=== PATIENT | male | born 2000 | race Caucasian/White ===

== ENCOUNTER 2023-05-21 13:55 | Outpatient (CLI) | payer OTHER, SELFPAY | END 2023-05-21 13:56 | disposition home or self-care (01) | LOC: NFLDREF 05-24 11:21 | PROVIDERS: Visit Provider Physician Assistant | DX: R30.0 Dysuria (principal); N39.0 Urinary tract infection, site not specified | CPT/HCPCS: 87491; 87591 ==

== ENCOUNTER 2023-06-06 16:32 | Outpatient (CLI) | payer OTHER, SELFPAY ==
[2023-06-07 00:39] LABS: Chlamydia DNA Amplified* Not Detected (No Detected)
[2023-06-07 00:40] LABS: GC DNA Amplified* Not Detected (No Detected)
== END 2023-06-06 16:33 | disposition home or self-care (01) ==
LOC: LKVREF 16:34
PROVIDERS: Visit Provider Nurse Practitioner Family
DX: Z11.3 Encounter for screening for infections with a predominantly sexual mode of transmission (principal)
CPT/HCPCS: 87086; 87491; 87591

== ENCOUNTER 2024-11-02 12:45 | Outpatient (CLI) | payer OTHER, SELFPAY | END 2024-11-02 12:46 | disposition home or self-care (01) | LOC: NFLDREF 11-03 21:41 | PROVIDERS: Visit Provider Family Medicine | DX: R30.0 Dysuria (principal); Z11.3 Encounter for screening for infections with a predominantly sexual mode of transmission | CPT/HCPCS: 87491; 87591 ==